=== PATIENT | female | born 1960 | race Caucasian/White ===

== ENCOUNTER 2017-04-29 08:48 | Day surgery (SDC) | payer MEDICAID ==
[2017-04-29] MEDS ORDERED: Lactated Ringer's 1,000 ML IV ONE ×2 (09:57→10:47)
[2017-04-29] MEDS ORDERED: Propofol 10 mg/ml Inj (20 ML) ONE (09:58)
[2017-04-29] MEDS ORDERED: Simethicone 40 mg/0.6 ml Liquid (30 ml) ONE (10:12)
[2017-04-29] MEDS ORDERED: Lactated Ringer's 500 ML IV SCH (10:15)
[2017-04-29 11:08] VITALS: TEMP 97
[2017-04-29 12:34] VITALS: BP 133/75; PULSE 69; RESP 17; O2SAT 99
== END 2017-04-29 11:45 | disposition home or self-care (01) ==
LOC: C.ENDO 08:48
PROVIDERS: ATTEND Internal Medicine
DX: Z12.11 Encounter for screening for malignant neoplasm of colon (principal); D12.5 Benign neoplasm of sigmoid colon; K57.30 Diverticulosis of large intestine without perforation or abscess without bleeding
CPT/HCPCS: 45385; 88305; J2704; J7120